=== PATIENT | female | born 1985 | race Caucasian/White ===

== ENCOUNTER 2016-12-09 11:58 | Emergency (ER) | payer OTHER ==
[2016-12-09 12:10] VITALS: BP 111/74; PULSE 85; O2SAT 100
[2016-12-09] MEDS ORDERED: BACIGUENT PACKET TP ONE (12:35)
[2016-12-09] MEDS ORDERED: XYLOCAINE 1% HCL 20 ML MDV IJ ONE (12:35)
--- NOTE | 2016-12-09 12:39 | ERPHSYRPT ---
- History of Present Illness Time Seen by Provider: 12/09/16 12:30 Source: patient Patient Subjective Stated Complaint: PT REPORTS USING A SLICER ET CUTTING RIGHT THUMB-DENIES NUMBNESS TO EXTREMITY Triage Nursing Assessment: LAC NOTED WITH BLEEDING CONTROLLED UPON ARRIVAL-PT ALERT RESP EASY ET NONLABORED Physician History: CC: cut to right thumb Hx: 31 y/o healthy patient working at [employer]. She sliced right thumb this AM [employer] on a [employer]. Cut to the right thumb. Last tetanus updated 3 years ago. No allergies. States not . Occurred: just prior to arrival Extremities Pain Location: thumb: left Allergies/Adverse Reactions: No Known Drug Allergies Allergy (Verified 12/09/16 12:10) Home Medications: No Home Meds 0 mg PO DAILY 12/09/16 [History] Hx Tetanus, Diphtheria Vaccination/Date Given: Yes Hx Influenza Vaccination/Date Given: No Hx Pneumococcal Vaccination/Date Given: No Immunizations Up to Date: Yes - Review of Systems Constitutional: No Symptoms Neurological: No Focal Weakness, No Parasthesia - Past Medical History Pertinent Past Medical History: Yes Cardiac History: No Pertinent History Respiratory History: No Pertinent History Endocrine Medical History: No Pertinent History Musculoskeletal History: No Pertinent History GI Medical History: No Pertinent History History: No Pertinent History Psycho-Social History: Depression Female Reproductive Disorders: No Pertinent History - Past Surgical History Past Surgical History: Yes Neuro Surgical History: No Pertinent History Cardiac: No Pertinent History Respiratory: No Pertinent History Gastrointestinal: No Pertinent History Genitourinary: No Pertinent History Musculoskeletal: No Pertinent History Female Surgical History: Section Other Surgical History: ears. tonsilectomy - Social History Smoking Status: Current every day smoker How long have you smoked: 15 Exposure to second hand smoke: No Drug Use: none Patient Lives Alone: No - Female History Hx Last Menstrual Period: 2 WKS AGO - Nursing Vital Signs Nursing Vital Signs: Initial Vital Signs Temperature 97.8 F Temperature Source Oral Pulse Rate 85 Respiratory Rate 22 Blood Pressure [Right Arm] 111/74 Pain Intensity 4 - Physical Exam General Appearance: alert Cardiovascular/Respiratory Exam: regular rate/rhythm Neuro/Tendon Exam: normal sensation, normal motor functions Mental Status Exam: alert, oriented x 3, cooperative Skin Exam: warm, dry SpO2: 100 Oxygen Delivery: Room Air Comments: Right thumb has 2 cm palmar distal laceration. No FB. ROM intact. 2 point intact. Procedures - Laceration/Wound Repair right thumb Wound Length (cm): 2 Wound's Depth, Shape: superficial, linear Wound Explored: no foreign body noted Irrigated: Yes (250ml NS) Hibiclens Prep: Yes Anesthesia: digital block, 1% Lidocaine Volume Anesthetic (ccs): 3.5 Wound Repaired With: sutures Suture Size/Type: 4-0, prolene Number of Sutures: 4 Sterile Dressing Applied?: Yes Progress: 12/09/16 13:10 Wound instructions given. - Course Nursing assessment & vital signs reviewed: Yes Ordered Tests: Active Orders 24 hr Category Date Time Status Prepare for Sutures STAT Care 12/09/16 12:35 Active Sutures STAT Care 12/09/16 12:35 Active Medication Summary Discontinued Medications Generic Name Dose Route Start Last Admin Trade Name Freq PRN Reason Stop Dose Admin Bacitracin 0.9 gm 12/09/16 12:35 Baciguent Packet TP 12/09/16 12:36 STAT ONE Bacitracin Confirm 12/09/16 12:43 Baciguent Packet Administered 12/09/16 12:44 Dose 1 gm .ROUTE .STK-MED ONE Lidocaine HCl 5 ml 12/09/16 12:35 Xylocaine 1% Hcl 20 Ml Mdv IJ 12/09/16 12:36 STAT ONE Lidocaine HCl Confirm 12/09/16 12:43 Xylocaine 1% Hcl 20 Ml Mdv Administered 12/09/16 12:44 Dose 5 ml .ROUTE .STK-MED ONE - Departure Time of Disposition: 13:11 Departure Disposition: Home Clinical Impression: Laceration of right thumb Qualifiers: Encounter type: initial encounter Qualified Code(s): S61.011A - Laceration without foreign body of right thumb without damage to nail, initial encounter Condition: Stable Critical Care Time: No Referrals: LAURA GONZALEZ [Primary Care Provider] - Instructions: Care for a Laceration After Repair Additional Instructions: LACERATION CARE 1. Do not use peroxide, merthiolate, alcohol, or betadine. 2. Keep wound clean and dry. 3. Change dressing if it becomes wet or soiled. 4. If you must work, wear protective covering. 5. You may return to the emergency department or see your family physician for suture removal. 6. See your family physician or return to the emergency department for any of the following signs or symptoms: A. Redness B. Swelling C. Discolored drainage D. Red streaks E. Elevated temperature F. Other signs of infection Suture removal in 10 days. Tylenol if needed for discomfort.
[2016-12-09] MEDS ORDERED: XYLOCAINE 1% HCL 20 ML MDV ONE (12:43)
[2016-12-09] MEDS ORDERED: BACIGUENT PACKET ONE (12:43)
== END 2016-12-09 13:27 | disposition home or self-care (01) ==
LOC: ED 11:58
PROC: 0HQFXZZ Repair Right Hand Skin, External Approach (ICD-10-PCS; principal; 2016-12-09)
DX: S61.011A Laceration without foreign body of right thumb without damage to nail, initial encounter (principal); W45.8XXA Other foreign body or object entering through skin, initial encounter; W31.82XA Contact with other commercial machinery, initial encounter; Y92.511 Restaurant or cafe as the place of occurrence of the external cause; Y99.0 Civilian activity done for income or pay
CPT/HCPCS: 12001; 99284; A9270-GY

== ENCOUNTER 2017-08-01 11:15 | Emergency (ER) | payer OTHER ==
[2017-08-01] MEDS ORDERED: MOTRIN 400 MG PO ONE (11:34)
[2017-08-01] MEDS ORDERED: MOTRIN 400 MG ONE (11:36)
--- NOTE | 2017-08-01 11:37 | ERPHSYRPT ---
- History of Present Illness Time Seen by Provider: 08/01/17 11:31 Source: patient Exam Limitations: no limitations Patient Subjective Stated Complaint: was sent from [facility] to be seen for right ankle pain. pt states she twisted right ankle when she fell in hole Triage Nursing Assessment: has pain to outer aspect of ankle, has swelling noted , slight bruising, able to bear some wt on leg Physician History: mild to mod ache pain positional right ankle since yesterday, tripped in a hole , no bleeding or other injury, ambulating Timing/Duration: yesterday Associated Symptoms: denies symptoms Allergies/Adverse Reactions: No Known Drug Allergies Allergy (Verified 08/01/17 11:34) Home Medications: No Home Meds [No Home Meds] 0 mg PO DAILY 12/09/16 [History] Hx Tetanus, Diphtheria Vaccination/Date Given: Yes Hx Influenza Vaccination/Date Given: No Hx Pneumococcal Vaccination/Date Given: No Immunizations Up to Date: Yes - Review of Systems Constitutional: No Symptoms Musculoskeletal: Fall, No Back Pain, No Neck Pain, No Deformity Skin: No Symptoms Neurological: No Symptoms Psychological: No Symptoms - Past Medical History Pertinent Past Medical History: Yes Cardiac History: No Pertinent History Respiratory History: No Pertinent History Endocrine Medical History: No Pertinent History Musculoskeletal History: No Pertinent History GI Medical History: No Pertinent History History: No Pertinent History Psycho-Social History: Depression Female Reproductive Disorders: No Pertinent History - Past Surgical History Past Surgical History: Yes Neuro Surgical History: No Pertinent History Cardiac: No Pertinent History Respiratory: No Pertinent History Gastrointestinal: No Pertinent History Genitourinary: No Pertinent History Musculoskeletal: No Pertinent History Female Surgical History: Section Other Surgical History: ears. tonsilectomy - Social History Smoking Status: Current every day smoker How long have you smoked: 15 Exposure to second hand smoke: Yes Drug Use: none Patient Lives Alone: No - Female History Hx Last Menstrual Period: month Hx Now: No - Nursing Vital Signs Nursing Vital Signs: Initial Vital Signs Temperature 97.0 F 08/01/17 11:29 Pulse Rate 103 H 08/01/17 11:29 Respiratory Rate 18 08/01/17 11:29 Blood Pressure 125/72 08/01/17 11:29 O2 Sat by Pulse Oximetry 99 08/01/17 11:29 Pain Scale Pain Intensity 4 - Physical Exam General Appearance: no apparent distress Extremity Exam: other (tender sts lateral right ankle, rom limited by pain, nontender foot and knee, sen and pulses intact) SpO2: 99 Oxygen Delivery: Room Air - Course Nursing assessment & vital signs reviewed: Yes - Radiology Exams Ankle X-ray Interpretation: Interpreted by me, No Fracture Ordered Tests: Active Orders 24 hr Category Date Time Status Juan Bandage Application -[facility] STAT Care 08/01/17 13:14 Ordered Crutches STAT Care 08/01/17 13:14 Ordered ANKLE (3 VIEWS) Stat Exams 08/01/17 Taken Medication Summary Discontinued Medications Generic Name Dose Route Start Last Admin Trade Name Freq PRN Reason Stop Dose Admin Ibuprofen 400 mg 08/01/17 11:34 08/01/17 11:37 Motrin 400 Mg PO 08/01/17 11:35 400 mg STAT ONE Administration Ibuprofen Confirm 08/01/17 11:36 Motrin 400 Mg Administered 08/01/17 11:37 Dose 400 mg .ROUTE .STK-MED ONE - Progress Progress: improved Discussed with : Kristofer Will see patient in: office Counseled pt/family regarding: diagnosis, need for follow-up, rad results - Departure Time of Disposition: 13:15 Departure Disposition: Home Clinical Impression: Ankle injury Qualifiers: Encounter type: initial encounter Laterality: right Qualified Code(s): S99.911A - Unspecified injury of right ankle, initial encounter Condition: Stable Critical Care Time: No Referrals: LAURA GONZALEZ [Primary Care Provider] - Instructions: Ankle Sprain
[2017-08-01 13:34] VITALS: BP 116/88; PULSE 86; O2SAT 97
--- NOTE | 2017-08-01 16:36 | XRAY ---
Indication: Pain and swelling following injury. Comparison: None 3 views of the right ankle demonstrates anterolateral soft tissue swelling. No other bony, articular, or soft tissue abnormalities.
== END 2017-08-01 13:35 | disposition home or self-care (01) ==
LOC: ED 11:15
DX: S99.911A Unspecified injury of right ankle, initial encounter (principal); W17.2XXA Fall into hole, initial encounter
CPT/HCPCS: 73610; 99284; A9270-GY